=== PATIENT | female | born 1995 | race Caucasian/White ===

== ENCOUNTER 2024-06-01 22:28 | Emergency (ER) | payer OTHER, SELFPAY ==
[2024-06-01 22:42] VITALS: BP 161/99; PULSE 121; O2SAT 99
[2024-06-01 22:48] VITALS: BP 161/99; PULSE 115; RESP 19; TEMP 36.9; O2SAT 99; BMI 29.2
[2024-06-01 23:00] VITALS: PULSE 77; O2SAT 98
--- NOTE | 2024-06-01 23:21 | ED.GENADULT ---
HPI - General Adult General Chief complaint: Urogenital-Female Stated complaint: kidney infection, infected tooth Time Seen by Provider: 06/01/24 22:39 Source: patient Mode of arrival: Ambulatory History of Present Illness HPI narrative: Patient is a 28-year-old female. Was recently treated with clindamycin for a dental infection. She was seen at an outside facility for this she stated that that time she was also having a urinary tract infection although she stated that they seemed to be more focused on her dental where she was. She continues to have the dysuria and frequency and urgency. She has been taking Pyridium at home for symptoms without improvement. Some vomiting. Her dental pain is still present but is much improved. Related Data Previous Rx's Medication Instructions Recorded etonogestrel 0.12 mg-ethinyl 1 icr vaginal Q 1 MONTH #3 ea 07/19/16 estradiol 0.015 mg/24 hr vaginal ring (NuvaRing) cephalexin 500 mg capsule 500 mg PO BID 7 days #14 caps 06/02/24 phenazopyridine 100 mg tablet 100 mg PO TID PRN pain 6 doses #6 06/02/24 (Pyridium) tabs Allergies Allergy/AdvReac Type Severity Reaction Status Date / Time amoxicillin [AMOXICILLIN] Allergy Mild VOMITING Unverified 06/01/24 22:48 Review of Systems Review of Systems Narrative: See HPI Patient History Substance Use Type: does not use Exam Initial Vital Signs Initial Vital Signs: Vital Signs Pulse Rate 121 H 06/01/24 22:42 Blood Pressure 161/99 H 06/01/24 22:42 Pulse Oximetry 99 06/01/24 22:42 Const General: cooperative, comfortable and No ill appearing [facility] Head: normal to inspection Teeth and gingiva: fair dentition Resp Effort & Inspection: normal respiratory effort Auscultation: clear to auscultation bilaterally Cardio Rate: regular rate GI Inspection: normal to inspection Back/Spine/Pelvis Back: No CVA tenderness Neuro General: patient alert, patient awake and moves all extremities Course Orders Ordered: ED Orders 06/01/24 22:35 Urine Culture Stat Urine Microscopic Stat Discontinued Medications Cephalexin HCl (Cephalexin 250 Mg Capsule) 500 mg PO NOW ONE Stop: 06/02/24 00:03 Last Admin: 06/02/24 00:10 Dose: 500 mg Documented By: RODERICK Phenazopyridine HCl (Phenazopyridine 100 Mg Tablet) 100 mg PO NOW ONE Stop: 06/02/24 00:03 Last Admin: 06/02/24 00:10 Dose: 100 mg Documented By: RODERICK Vital Signs Vital signs: Vital Signs - 8 hr 06/01/24 22:42 06/01/24 22:42 06/01/24 22:48 Temperature 98.4 F Pulse Rate 121 H 115 H Respiratory Rate 19 Blood Pressure 161/99 H 161/99 H Pulse Oximetry 99 99 Oxygen Delivery Method Room Air 06/01/24 23:00 06/01/24 23:33 06/01/24 23:35 Temperature Pulse Rate 77 87 87 Respiratory Rate 18 Blood Pressure 99/56 L Pulse Oximetry 98 97 95 Oxygen Delivery Method Room Air 06/01/24 23:35 06/02/24 00:00 06/02/24 00:01 Temperature Pulse Rate 91 H 95 H Respiratory Rate Blood Pressure 99/56 L Pulse Oximetry 99 99 Oxygen Delivery Method 06/02/24 00:01 Temperature Pulse Rate Respiratory Rate Blood Pressure 142/63 H Pulse Oximetry Oxygen Delivery Method Medical Decision Making Lab Data Lab results reviewed: Yes I reviewed the patient's lab results. Labs: Lab Results 06/01/24 Range/Units 22:35 Urine RBC 30-100/hpf H (0-5/HPF) Urine WBC 5-10/hpf H (0-5/HPF) Ur Squamous Epith Cells 5-10 /hpf H (0-5/HPF) Urine Bacteria Many (>30) H (None) Ur Culture Indicated? Specimen cultured Vol Urine Centrifuged 10ml (spun) Point of Care Testing Test Results Negative Urine Dip Bedside Urine Glucose Negative Bedside Urine Bilirubin + 1 Bedside Urine Ketone +/- 5 Urine Specific [place] 1.030 Bedside Urine Occult Blood +++ Bedside Urine pH 6.0 Bedside Urine Protein + 30 Bedside Urine Urobilinogen +/- 1mg Bedside Urine Nitrite + Positive Bedside Urine Leukocytes ++ 125 Esterase Point of care testing: Point of Care Testing Test Results Negative Urine Dip Bedside Urine Glucose Negative Bedside Urine Bilirubin + 1 Bedside Urine Ketone +/- 5 Urine Specific [place] 1.030 Bedside Urine Occult Blood +++ Bedside Urine pH 6.0 Bedside Urine Protein + 30 Bedside Urine Urobilinogen +/- 1mg Bedside Urine Nitrite + Positive Bedside Urine Leukocytes ++ 125 Esterase MDM Narrative Medical decision making narrative: No definitive dental abscess seen on the exam. She does have a nitrite positive urine which is consistent with her presenting symptoms today. She was no CVA tenderness. Low suspicion for pyelonephritis. Will treat with antibiotics for her urinary tract infection. First dose given here in the ER and a prescription was sent to the pharmacy of her choice. She was given return precautions and follow-up instructions. She expressed understanding and agreement with plan. Discharge Plan Departure Patient Disposition: Home Clinical Impression: UTI (urinary tract infection) Instructions: DI for Urinary Tract Infection (UTI) Activity Restrictions/Additional Instructions: A urine culture was pending at the time of your discharge and we will contact you if we need to change antibiotics based on this. Take the antibiotics as directed. They were sent to [facility] per your request. You can take Tylenol and or ibuprofen for discomfort. Return to the emergency department for new or worsening symptoms. Prescriptions: New phenazopyridine [Pyridium] 100 mg tablet 100 mg PO TID PRN (Reason: pain) Qty: 6 0RF cephalexin 500 mg capsule 500 mg PO BID 7 Days Qty: 14 0RF No Action etonogestrel-ethinyl estradiol [NuvaRing] 1 EACH ring 1 icr Vaginal Q 1 MONTH Qty: 3 1RF Referrals: Alanis Peters DO [Primary Care Provider] - Stand Alone Forms: Patient Portal/API/Survey
[2024-06-01 23:33] VITALS: BP 99/56; PULSE 87; RESP 18; O2SAT 97
[2024-06-01 23:35] VITALS: BP 99/56; PULSE 87; O2SAT 95
[2024-06-01 23:50] LABS: RBC Urine 30-100/HPF (0-5/HPF); Urine Volume 10mL (spun)
[2024-06-01 23:51] LABS: Bacteria Urine Many (>30); Culture Indicated Urine Specimen Cultured; Squamous Epithelial Cell Urine 5-10 /HPF (0-5/HPF); WBC Urine 5-10/HPF (0-5/HPF)
[2024-06-02] VITALS: PULSE 91; O2SAT 99
[2024-06-02 00:01] VITALS: BP 142/63; PULSE 95; O2SAT 99
[2024-06-02] MEDS: PHENAZOPYRIDINE 100 MG TABLET PO (00:10)
[2024-06-02] MEDS: cephALEXin 250 MG CAPSULE 500 MG PO (00:10)
== END 2024-06-02 00:25 | disposition home or self-care (01) ==
PROVIDERS: Emergency Provider Emergency Medicine; PCP Family Medicine
DX: N39.0 Urinary tract infection, site not specified (principal)
CPT/HCPCS: 81003; 81015; 81025; 87077; 87086; 87186; 99283

== ENCOUNTER 2024-06-30 01:52 | Emergency (ER) | payer OTHER, MEDICAID, SELFPAY ==
[2024-06-30 02:08] VITALS: BP 113/69; PULSE 107; PULSE 124; RESP 18; TEMP 36.9; O2SAT 100; O2SAT 94; BMI 27.8
[2024-06-30 02:30] VITALS: BP 106/64; PULSE 92; O2SAT 93
[2024-06-30 02:43] LABS: Urine Volume 10mL (spun)
[2024-06-30 02:44] LABS: Bacteria Urine Many (>30); RBC Urine 30-100/HPF (0-5/HPF); Squamous Epithelial Cell Urine 10-30 /HPF (0-5/HPF); WBC Urine 1-5/HPF (0-5/HPF)
[2024-06-30 02:45] LABS: Culture Indicated Urine Specimen Cultured
--- NOTE | 2024-06-30 02:47 | ED_ITS ---
HPI - Female Genitourinary General Chief complaint: Urogenital-Female Stated complaint: kidney infection, tooth infection, was here t-3w Time Seen by Provider: 06/30/24 02:43 Source: patient, RN notes reviewed and old records reviewed Mode of arrival: Ambulatory Limitations: no limitations History of Present Illness HPI Narrative: [age] year female presents with complaint of UTI states she has had 2 bladder infections treated with oral antibiotics that failed in the past several months most recently was June 01, 2024. Patient states treated for UTI about 6 weeks ago while living in [place], has recently moved to the area was treated at the end of May and has had recurrent symptoms. She states never really had complete resolution of symptoms. Describes fevers, had some nausea and vomiting today, lower abdominal pain as well as bilateral flank pain but greater on right. Patient describes dysuria urgency and frequency. States she was not sexually active. No new discharge or vaginal bleeding. No issues with bowel movements. Patient states she completed her antibiotics. She has not daily prescription for ADHD. States no prior surgeries but has had cystoscopy for recurrent UTIs saw urogynecology several years ago she was having persistent and frequent UTIs that would never clear. Was told that she had little bit of change to her anatomy that makes her more likely to develop infections. She states she was on a low-dose oral antibiotic for 90 days for a period of time. She has had periods where she will be asymptomatic and then have extended periods where she is symptomatic. States she was in allergy to amoxicillin makes her vomit, also describes a dystonic reaction to Compazine. No regular tobacco, denies any recreational drugs or alcohol. Related Data Previous Rx's Medication Instructions Recorded etonogestrel 0.12 mg-ethinyl 1 icr vaginal Q 1 MONTH #3 ea 07/19/16 estradiol 0.015 mg/24 hr vaginal ring (NuvaRing) phenazopyridine 100 mg tablet 100 mg PO TID PRN pain 6 doses #6 06/02/24 (Pyridium) tabs ciprofloxacin HCl 500 mg tablet 500 mg PO BID #20 tabs 06/30/24 Allergies Allergy/AdvReac Type Severity Reaction Status Date / Time amoxicillin [AMOXICILLIN] Allergy Mild VOMITING Unverified 06/01/24 22:48 Review of Systems Review of Systems ROS Unobtainable: All systems reviewed & are unremarkable except as noted in HPI and below Patient History Substance Use Type: does not use Exam Narrative Exam Narrative: GENERAL: Alert and oriented x three, female in [id number] distress. HEENT: Head normocephalic, atraumatic, EOMI, pupils reactive, face symmetric, moist mucous membranes NECK: Supple, full range of motion CARDIOVASCULAR: Regular rate and rhythm without murmurs, rubs or gallops. RESPIRATORY: Breath sounds equal bilaterally, no wheezes rales or rhonchi. ABDOMEN: Soft, nontender. Normoactive bowel sounds all 4 quadrants. No guarding or rebound, rigidity, no mass : Mild right CVA tenderness, no left CVA tenderness EXTREMITIES: Normal range of motion, no clubbing or edema. Neurovascularly intact NEUROLOGICAL: Cranial nerves II through XII grossly intact. Moving all extremities SKIN: Warm, dry, no petechiae, no rashes or lesions. Initial Vital Signs Initial Vital Signs: Vital Signs Temperature 98.4 F 06/30/24 02:08 Pulse Rate 107 H 06/30/24 02:08 Respiratory Rate 18 06/30/24 02:08 Blood Pressure 113/69 06/30/24 02:08 Pulse Oximetry 100 06/30/24 02:08 Oxygen Delivery Method Room Air 06/30/24 02:08 Course Orders Ordered: ED Orders 06/30/24 02:11 Urine Culture Stat Urine Microscopic Stat 06/30/24 02:20 CBC Auto Diff [Complete Blood Count AUTO DIFF] Stat CMP [Comprehensive Metabolic Panel] Stat Lactate (Lactic Acid) Stat Procalcitonin Stat 06/30/24 03:07 US renal complete Stat 06/30/24 03:10 Blood Culture Stat Discontinued Medications Ciprofloxacin (Ciprofloxacin 250 Mg Tablet) 500 mg PO NOW ONE Stop: 06/30/24 03:07 Last Admin: 06/30/24 03:31 Dose: 500 mg Documented By: NORA Ketorolac Tromethamine (Ketorolac 30 Mg/Ml Vial) 15 mg IV NOW ONE Stop: 06/30/24 03:07 Last Admin: 06/30/24 03:31 Dose: 15 mg Documented By: NORA Ondansetron HCl (Ondansetron 4 Mg/2 Ml Inj) 4 mg IV NOW ONE Stop: 06/30/24 03:07 Last Admin: 06/30/24 03:32 Dose: 4 mg Documented By: NORA Ondansetron HCl (Ondansetron 4 Mg Odt Prepack) 1 bottle MISC DIRECTED ONE Stop: 06/30/24 05:35 Tramadol HCl (Tramadol 50 Mg Tablet) 50 mg PO NOW ONE Stop: 06/30/24 04:16 Last Admin: 06/30/24 05:00 Dose: 50 mg Documented By: NORA Tramadol HCl (Tramadol 50 Mg Prepack) 1 bottle MISC DIRECTED ONE Stop: 06/30/24 05:35 Vital Signs Vital signs: Vital Signs - 8 hr 06/30/24 02:08 06/30/24 02:08 06/30/24 02:08 Temperature 98.4 F Pulse Rate 107 H 124 H Respiratory Rate 18 Blood Pressure 113/69 113/69 Pulse Oximetry 100 94 Oxygen Delivery Method Room Air 06/30/24 02:30 06/30/24 02:30 06/30/24 03:00 Temperature Pulse Rate 92 H Respiratory Rate Blood Pressure 106/64 109/61 Pulse Oximetry 93 Oxygen Delivery Method 06/30/24 03:00 06/30/24 05:03 Temperature Pulse Rate 98 H 84 Respiratory Rate 20 16 Blood Pressure 107/64 Pulse Oximetry 100 97 Oxygen Delivery Method Room Air Room Air MDM - Female Genitourinary Lab Data 06/30/24 02:20 06/30/24 02:20 Labs: Lab Results 06/30/24 06/30/24 Range/Units 02:11 02:20 WBC 7.0 (4.5-11.0) X10^3/uL RBC 3.82 L (4.0-5.2) X10^6/uL Hgb 11.9 L (12.0-16.0) g/dL Hct 34.7 L (36-46) % MCV 90.8 (80-100) fL MCH 31.2 (26-34) PG MCHC 34.4 (30-36) % RDW 12.6 (11.6-14.8) % Plt Count 262 (150-400) X10^3/uL Neut % (Auto) 43.3 L (50-75) % Lymph % (Auto) 45.1 H (25-40) % [place] % (Auto) 8.8 (3-14) % Eos % (Auto) 1.7 L (2-4) % Baso % (Auto) 1.1 (0-2) % Neut # (Auto) 3000 (8993-9463) /uL Lymph # (Auto) 3200 (7325-5821) /uL [place] # (Auto) 600 (0-900) /uL Eos # (Auto) 100 (0-450) /uL Baso # (Auto) 100 (0-100) /uL Sodium 137 (137-145) mmol/L Potassium 3.8 (3.4-5.1) mmol/L Chloride 107 (98-107) mmol/L Carbon Dioxide 26 (22-32) mmol/L BUN 15 (7-17) mg/dL Creatinine 0.60 (0.52-1.04) mg/dL Estimated GFR > 60 (>60) mL/min BUN/Creatinine Ratio 25.0 H (6-22) Glucose 101 H (70-100) mg/dL Lactate 1.4 (0.7-2.1) mmol/L Calcium 8.8 (8.4-10.2) mg/dL Total Bilirubin 0.3 (0.2-1.3) mg/dL AST 25 (14-36) IU/L ALT 20 (<35) IU/L Alkaline Phosphatase 43 (38-126) U/L Total Protein 7.5 (6.3-8.2) g/dL Albumin 4.1 (3.5-5.0) g/dL Globulin 3.4 (1.7-4.1) g/dL Albumin/Globulin Ratio 1.2 (1.0-2.8) Procalcitonin < 0.030 (<0.5) ng/mL Urine RBC 30-100/hpf H (0-5/HPF) Urine WBC 1-5/hpf (0-5/HPF) Ur Squamous Epith Cells 10-30 /hpf H (0-5/HPF) Urine Bacteria Many (>30) H (None) Ur Culture Indicated? Specimen cultured Vol Urine Centrifuged 10ml (spun) Point of Care Testing Test Results Negative Urine Dip Bedside Urine Glucose Negative Bedside Urine Bilirubin - Negative Bedside Urine Ketone +/- 5 Urine Specific [place] 1.03 Bedside Urine Occult Blood +++ Bedside Urine pH 6 Bedside Urine Protein +/- 15 Bedside Urine Urobilinogen - Negative Bedside Urine Nitrite + Positive Bedside Urine Leukocytes + 70 Esterase Imaging Data renal us: Radiologist's Impression: Normal kidneys no hydro nondistended urinary bladder could not be evaluated. MDM Narrative Medical decision making narrative: 28-year-old female who has complaint of UTI symptoms which she states has been pretty persistent for the past 6 weeks was treated with oral antibiotics do not have access to her 1st urine culture but 2nd urine culture on 06/01 showed E coli pansensitive appears to has been treated appropriately with cephalexin but states she did not have improvement of symptoms. Patient does note that she has had issues with recurrent UTIs in the past she was actually seen urogynecology about 5 or 6 years ago for had cystoscopy they told her anatomy has a little bit different and probably made her more likely to get bacterial infections. She has done a 90 day course of a low-dose antibiotic in the past. She has not seen Urology recently Urine is negative. Point of care urine shows blood, positive nitrates, positive for leukocyte esterase. Patient was started on 100 RBCs, 1-5 WBCs 10-30 squamous, many bacteria was sent for culture. Labs show white count of 7 hemoglobin 11.9 platelets of 262 predominance of lymphocytes. Normal renal function, BUN and creatinine, glucose is 101 lactate 1.4 LFTs are negative, procalcitonin Renal ultrasound shows normal kidneys hydro, bladder not fully evaluated as it was decompressed. Reviewed patient's last visit she had positive urine culture for greater than 100,000 E coli that was pansensitive she was about month on 06/01/2024. Patient received Toradol, Zofran and ciprofloxacin. Patient is afebrile, slightly anemic but otherwise appropriate labs we will treat for potential pyelonephritis. We will also give referral for Urology as patient has had recurrent UTIs with a issues in the past. She has seen urogynecology but discussed she would have to go to a larger facility as we do not have that available. Patient is still little bit uncomfortable but feels improved. No persistent vomiting here in the department. She feels comfortable with following with Urology locally. Discussed return precautions. Discharge Plan Departure Patient Disposition: Home Clinical Impression: Pyelonephritis Instructions: DI for Kidney Infection Activity Restrictions/Additional Instructions: I think do think you would benefit from following up with Urology. Please call the number included below to set follow up. You do have a pending if it shows resistance the antibiotic you have been prescribed he will be contacted to change your antibiotic. Take oral antibiotics until completed. You can take Zofran 1 tablet every 6 hours as needed, can take tramadol 1-2 tablets every 6 hours as needed for pain. This medication can make you sleepy do not drive, perform hazardous activities or make any major decisions while taking it. This medication will make you constipated please take a stool softener once to twice daily until stools are soft and regular. Prescription sent to [facility] in [place]. Please return for persistent fevers, new or worsening abdominal back flank pain, persistent vomiting, inability urinate, black or bloody stools or other new or concerning changes. Prescriptions: New ciprofloxacin HCl 500 mg tablet 500 mg PO BID Qty: 20 0RF No Action etonogestrel-ethinyl estradiol [NuvaRing] 1 EACH ring 1 icr Vaginal Q 1 MONTH Qty: 3 1RF phenazopyridine [Pyridium] 100 mg tablet 100 mg PO TID PRN (Reason: pain) Qty: 6 0RF Referrals: Vicente Robins MD [Physician] - Stand Alone Forms: Patient Portal/API/Survey
[2024-06-30 03:00] VITALS: BP 109/61; PULSE 98; RESP 20; O2SAT 100
--- NOTE | 2024-06-30 03:07 | DI.US.S_ITS ---
PROCEDURE: US RENAL COMPLETE INDICATIONS: flank pain, vomiting, recurrent uti TECHNIQUE: Real-time scanning was performed of the kidneys and bladder, with image documentation. COMPARISON: None. FINDINGS: Kidneys: Kidneys are normal in size. Right kidney measures 9.8 cm long; left kidney measures 1.2 cm long. Right renal cortical thickness is 1.2 cm; left renal cortical thickness is 1.5 cm. Renal cortical echotexture is normal. No hydronephrosis or nephrolithiasis. No suspicious solid mass lesions. Bladder: Decompressed and not well evaluated. Miscellaneous: No free pelvic fluid. IMPRESSION: Normal appearance of the kidneys. Findings are concordant with preliminary interpretation provided by [facility]. Dictated by: Eduin Mcdowell M.D. on 06/30/2024 at 8:17 Approved by: Eduin Mcdowell M.D. on 06/30/2024 at 8:17
[2024-06-30 03:15] LABS: Add Manual Diff / Slide Review NO; Basophils Absolute Auto 100 /uL (0-100); Basophils Percent Auto 1.1 % (0-2); Eosinophils Absolute Auto 100 /uL (0-450); Eosinophils Percent Auto 1.7 % (2-4); Hematocrit 34.7 % (36-46); Hemoglobin 11.9 g/dL (12.0-16.0); Lymphocytes Absolute Auto 3200 /uL (1100-4500); Lymphocytes Percent Auto 45.1 % (25-40); Mean Corpuscular HGB Conc 34.4 % (30-36); Mean Corpuscular Hemoglobin 31.2 PG (26-34); Mean Corpuscular Volume 90.8 fL (80-100); Monocytes Absolute Auto 600 /uL (0-900); Monocytes Percent Auto 8.8 % (3-14); Neutrophils Absolute Auto 3000 /uL (1500-7000); Neutrophils Percent Auto 43.3 % (50-75); Platelet Count 262 X10^3/uL (150-400); Red Blood Cell Count 3.82 X10^6/uL (4.0-5.2); Red Cell Distribution Width 12.6 % (11.6-14.8)
[2024-06-30 03:20] LABS: Lactate (Lactic Acid) 1.4 mmol/L (0.7-2.1)
[2024-06-30 03:21] LABS: Alanine Aminotransferase 20 IU/L (<35); Albumin 4.1 g/dL (3.5-5.0); Albumin Globulin Ratio 1.2 (1.0-2.8); Alkaline Phosphatase 43 U/L (38-126); Aspartate Aminotransferase 25 IU/L (14-36); Bilirubin Total 0.3 mg/dL (0.2-1.3); Blood Urea Nitrogen 15 mg/dL (7-17); Calcium 8.8 mg/dL (8.4-10.2); Carbon Dioxide 26 mmol/L (22-32); Chloride 107 mmol/L (98-107); Estimated Glomerular Filt Rate > 60 mL/min (>60); Globulin 3.4 g/dL (1.7-4.1); Glucose 101 mg/dL (70-100); HEMOLYSIS < 15 (0-50); Potassium 3.8 mmol/L (3.4-5.1); Sodium 137 mmol/L (137-145); Total Protein 7.5 g/dL (6.3-8.2)
--- NOTE | 2024-06-30 03:30 | PC.NURSE ---
US at bedside
[2024-06-30] MEDS: KETOROLAC 30 MG/ML VIAL 15 MG IV (03:31)
[2024-06-30] MEDS: CIPROFLOXACIN 250 MG TABLET 500 MG PO (03:31)
[2024-06-30] MEDS: ONDANSETRON 4 MG/2 ML INJ IV (03:32)
[2024-06-30 03:37] LABS: Procalcitonin < 0.030 ng/mL (<0.5)
--- NOTE | 2024-06-30 04:00 | PC.NURSE ---
Pt resting quietly with eyes closed, resps even and not labored. No distress noted at this time.
[2024-06-30 04:58] VITALS: BP 107/64; PULSE 82; O2SAT 92
[2024-06-30 05:00] VITALS: PULSE 85; RESP 18; O2SAT 99
[2024-06-30] MEDS: TRAMADOL 50 MG TABLET PO (05:00)
[2024-06-30 05:03] VITALS: BP 107/64; PULSE 84; RESP 16; O2SAT 97
[2024-06-30] MEDS: ONDANSETRON 4 MG ODT PREPACK 1 BOTTLE MISC (05:39)
[2024-06-30] MEDS: TRAMADOL 50 MG PREPACK 1 BOTTLE MISC (05:39)
== END 2024-06-30 05:49 | disposition home or self-care (01) ==
PROVIDERS: Emergency Provider Emergency Medicine
DX: N12 Tubulo-interstitial nephritis, not specified as acute or chronic (principal); D64.9 Anemia, unspecified
CPT/HCPCS: 36415; 76770; 80053; 81003; 81015; 81025; 83605; 84145; 85025; 87040; 87077; 87086; 87186; 96374; 96375; 99284; J1885; J2405

== ENCOUNTER 2024-11-02 01:03 | Emergency (ER) | payer OTHER, SELFPAY ==
[2024-11-02 01:12] VITALS: BP 133/65; PULSE 133; RESP 20; TEMP 36.7; O2SAT 99
--- NOTE | 2024-11-02 01:25 | ED_ITS ---
HPI - Dental/Oral General Chief complaint: Dental/Oral Stated complaint: rt side of face swollen, vision is blurry Time Seen by Provider: 11/02/24 01:25 Source: patient Mode of arrival: Ambulatory History of Present Illness HPI Narrative: 29-year-old female with a history of mixed connective tissue disease not on any chronic medications for this, comes into the ED from home for evaluation of multiple complaints. She states that this disease has caused her issues with having dental infection/tooth loss. She states that she noticed that she has had issues with her teeth over the past few days started taking clindamycin however she states that she feels like it is not helping given the fact that she feels like she is now having blurry vision to her right eye, she states that she normally has baseline blurry vision to her right eye but she feels like it is ?10% worse she states that she has had history of sinus infections that cause worsening of the symptoms therefore decided come into the ED for further evaluation treatment. She denies any actual headache chest pain shortness breath fever chills nausea vomiting abdominal pain or any other GI/ symptoms time. On exam patient with NIH of 0, no focal deficits. Related Data Previous Rx's Medication Instructions Recorded etonogestrel 0.12 mg-ethinyl 1 icr vaginal Q 1 MONTH #3 ea 07/19/16 estradiol 0.015 mg/24 hr vaginal ring (NuvaRing) phenazopyridine 100 mg tablet 100 mg PO TID PRN pain 6 doses #6 06/02/24 (Pyridium) tabs ciprofloxacin HCl 500 mg tablet 500 mg PO BID #20 tabs 06/30/24 Allergies Allergy/AdvReac Type Severity Reaction Status Date / Time amoxicillin [AMOXICILLIN] Allergy Mild VOMITING Unverified 06/01/24 22:48 Review of Systems Review of Systems Narrative: General: Denies fever, chills, weight loss HEENT: Positive dental pain/swelling Denies headache, eye drainage, eye irritation, head trauma, sore throat, voice change Cardiovascular: Denies any chest pain, palpitations, tachycardia Respiratory: Denies any shortness of breath, cough, wheeze, stridor GI/: Denies any abdominal pain, nausea, vomiting, diarrhea, bright red blood per rectum, melanotic stools, urinary frequency, urinary retention, dysuria, hematuria MSK: Denies any joint pain, muscle pains, swelling Skin: Denies any rashes, lesions, discoloration Neuro: Positive right-sided blurry vision, Denies any headache, lightheadedness, dizziness, fainting, weakness Psych: Denies SI/HI Patient History Social History Smoking Status: Never smoker Smoking Status: Never smoker Exam Narrative Exam Narrative: General: Cooperative, well-developed, not in acute distress HEENT: Normocephalic, atraumatic, PERRLA, normal sclera, eyelids normal, multiple dental caries noted, patient is speaking full sentences protecting airway no appreciable periapical abscesses, eye pressures: Left eye 15 mm Hg, right eye 16 mm Hg Neck: Active full range of motion, atraumatic Chest: Normal to inspection, negative crepitus, no overlying erythema ecchymosis Respiratory: Normal respiratory effort, not in acute respiratory distress, clear to auscultation bilaterally negative cough, wheeze, tachypnea, rhonchi, rales Cardiology: Regular rate rhythm negative gallop, murmur, rubs GI/: No tenderness to palpation, soft, non rigid, normal to inspection, exam deferred MSK: Full active range of motion in all 4 extremities, atraumatic, no tenderness to palpation of any bony prominences Skin: No rashes or lesions noted Neuro: Alert awake oriented x3, moves all 4 extremities spontaneously, cranial nerves intact, able to answer all questions appropriately follows commands appropriately Psych: Cooperative, negative suicidal or homicidal ideations Initial Vital Signs Initial Vital Signs: Vital Signs Temperature 98.1 F 11/02/24 01:12 Pulse Rate 133 H 11/02/24 01:12 Respiratory Rate 20 11/02/24 01:12 Blood Pressure 133/65 11/02/24 01:12 Pulse Oximetry 99 11/02/24 01:12 Oxygen Delivery Method Room Air 11/02/24 01:12 Course Orders Ordered: ED Orders 11/02/24 01:20 Beta HCG, Quant [HCG Quantitative /Beta subunit] Stat CBC Auto Diff [Complete Blood Count AUTO DIFF] Stat CMP [Comprehensive Metabolic Panel] Stat MAG [Magnesium] Stat 11/02/24 01:35 CT angio head and neck Stat CT head/brain wo con Stat Vital Signs Vital signs: Vital Signs - 8 hr 11/02/24 01:12 Temperature 98.1 F Pulse Rate 133 H Respiratory Rate 20 Blood Pressure 133/65 Pulse Oximetry 99 Oxygen Delivery Method Room Air MDM - Dental/Oral Lab Data 11/02/24 01:20 11/02/24 01:20 Labs: Lab Results 11/02/24 Range/Units 01:20 WBC 7.9 (4.5-11.0) X10^3/uL RBC 4.01 (4.0-5.2) X10^6/uL Hgb 12.5 (12.0-16.0) g/dL Hct 35.7 L (36-46) % MCV 89.0 (80-100) fL MCH 31.2 (26-34) PG MCHC 35.1 (30-36) % RDW 12.3 (11.6-14.8) % Plt Count 344 (150-400) X10^3/uL Neut % (Auto) 56.5 (50-75) % Lymph % (Auto) 37.2 (25-40) % Ware % (Auto) 4.6 (3-14) % Eos % (Auto) 0.8 L (2-4) % Baso % (Auto) 0.9 (0-2) % Neut # (Auto) 4500 (6269-3188) /uL Lymph # (Auto) 2900 (8277-4638) /uL Ware # (Auto) 400 (0-900) /uL Eos # (Auto) 100 (0-450) /uL Baso # (Auto) 100 (0-100) /uL Sodium 139 (137-145) mmol/L Potassium 3.7 (3.4-5.1) mmol/L Chloride 102 (98-107) mmol/L Carbon Dioxide 26 (22-32) mmol/L BUN 13 (7-17) mg/dL Creatinine 0.73 (0.52-1.04) mg/dL Estimated GFR > 60 (>60) mL/min BUN/Creatinine Ratio 17.8 (6-22) Glucose 119 H (70-100) mg/dL Calcium 9.5 (8.4-10.2) mg/dL Magnesium 2.0 (1.6-2.3) mg/dL Total Bilirubin 0.5 (0.2-1.3) mg/dL AST 26 (14-36) IU/L ALT 19 (<35) IU/L Alkaline Phosphatase 63 (38-126) U/L Total Protein 8.7 H (6.3-8.2) g/dL Albumin 4.6 (3.5-5.0) g/dL Globulin 4.1 (1.7-4.1) g/dL Albumin/Globulin Ratio 1.1 (1.0-2.8) HCG, Quant < 2.39 mIU/mL Imaging Data CT scan - head: Radiologist's Impression: Preliminary read showing no acute intracranial abnormality, paranasal sinuses and mastoid air cells normally aerated CTA - brain/neck: Radiologist's Impression: Preliminary read showing nasopharynx, oropharynx and hypopharynx normal, no cervical mass fluid collection no aerodigestive tract mass the parotid submandibular and thyroid glands are normal no lymphadenopathy, no at evidence of stenosis or occlusion of the vertebral arteries MDM Narrative Medical decision making narrative: 29-year-old female with a history of mixed connective tissue disease comes into the ED from home for evaluation of possible dental infection, states that she has been taking clindamycin for this over the past 4 days, she states that she feels like this is not helping, she also states that she feels like she has worsening of her baseline right eye blurry vision, she states that she feels like it is ?10% worse she states that the blurry vision is typically due to her astigmatism, is not wearing her corrective lenses today. She states that she has not having any headache or other new visual disorder. On exam patient with multiple dental caries but no periapical abscesses noted. Patient with NIH of 0, extraocular eye motions are intact. Patient with normal eye pressures bilaterally Patient had lab work imaging performed here in the emergency department without any acute findings. There is no appreciable swelling to the right side of her face, patient was instructed to follow up with her primary care doctor as well as dentist, patient was given strict return precautions she verbalized understanding of this and agrees to being discharged home with outpatient follow up Discharge Plan Departure Patient Disposition: Home Clinical Impression: Dental caries Activity Restrictions/Additional Instructions: Please follow up with your primary care doctor, ophthalmology as well as your dentist Please read the discharge instructions sheet carefully and bring all papers to all doctor follow-up visits, as it may contain information that your doctor may want to see. Disease processes change and evolve, if your symptoms worsen or if you develop any new symptoms that are concerning to you please return for evaluation. Your evaluation today does not show any evidence of any life- threatening/serious illnesses requiring admission to the hospital or surgery. Please follow-up with your doctor for re-evaluation in approximately 1 day. Seek immediate medical attention for any worrisome symptoms. *If you do not have a primary care provider please contact the [facility] Resource line at [phone]. They will ask some questions about your medical history and help get you set up with a doctor in the community. Prescriptions: No Action etonogestrel-ethinyl estradiol [NuvaRing] 1 EACH ring 1 icr Vaginal Q 1 MONTH Qty: 3 1RF ciprofloxacin HCl 500 mg tablet 500 mg PO BID Qty: 20 0RF phenazopyridine [Pyridium] 100 mg tablet 100 mg PO TID PRN (Reason: pain) Qty: 6 0RF Referrals: Jonel Freitas MD [Primary Care Provider] - Stand Alone Forms: Patient Portal/API/Survey
--- NOTE | 2024-11-02 01:35 | DI.CT.S_ITS ---
PROCEDURE: CT HEAD/BRAIN WO CON INDICATIONS: right eye blurry vision TECHNIQUE: Noncontrast 4.5 mm thick angled axial sections acquired from the foramen magnum to the vertex, with coronal and sagittal reformats. For radiation dose reduction, the following was used: automated exposure control, adjustment of mA and/or kV according to patient size. COMPARISON: None. FINDINGS: Image quality: Diagnostic. CSF spaces: Basal cisterns are patent. No extra-axial fluid collections. Ventricles are normal in size and shape. Brain: No midline shift. No intracranial masses or hemorrhage. Patel-white matter interface is normal. Skull and face: Calvarium and visualized facial bones are intact, without suspicious lesions. Sinuses: Left maxillary sinus mucosal thickening. Remainder of the paranasal sinuses appear clear. Mastoid air cells are well-aerated. IMPRESSION: No acute intracranial pathology. Left maxillary sinus disease. No significant discrepancy with the date night sitter radiology preliminary report. Dictated by: Gopi Wood M.D. on 11/02/2024 at 7:08 Approved by: Gopi Wood M.D. on 11/02/2024 at 7:08
--- NOTE | 2024-11-02 01:35 | DI.CT.S_ITS ---
PROCEDURE: CT ANGIO HEAD AND NECK INDICATIONS: right eye blurry vision TECHNIQUE: After the administration of intravenous contrast, 1 mm thick sections acquired from the aortic arch through the [place]. 3-dimensional dduiedh-qcfnfnqts-rczsqivdlt (MIP) and/or volume rendering reformats were acquired of the central intracranial vasculature and neck separately. For radiation dose reduction, the following was used: automated exposure control, adjustment of mA and/or kV according to patient size. COMPARISON: None. FINDINGS: Image quality: Diagnostic. BRAIN: CSF spaces: Ventricles are normal in size and shape. Basal cisterns are patent. No extra-axial fluid collections. Brain: No significant abnormality of the brain can be seen. Skull and face: Calvarium and facial bones appear intact, without suspicious lesions. Orbits appear normal. Sinuses: Left maxillary sinus mucosal thickening. Remainder of the paranasal sinuses appear clear. Mastoid air cells are well-aerated. HEAD CT ANGIOGRAPHY: Anterior circulation: Intracranial internal carotid arteries are normal in size and flow. The flow within the paired anterior cerebral arteries is normal and symmetric. The flow within the middle cerebral arteries is normal and symmetric. The anterior communicating artery is seen. No aneurysms are seen. Posterior circulation: Visualized portions of the vertebral arteries demonstrate normal caliber, and join to form a normal appearing basilar artery. Flow within the posterior cerebral arteries is normal and symmetric. No aneurysms are seen. NECK CT ANGIOGRAPHY: Carotid system: The great vessels demonstrate a conventional anatomy as they arise from the aortic arch. The origins of the common carotid arteries appear patent. The common carotid arteries demonstrate normal caliber and courses. The bifurcation regions are both widely patent. The internal carotid arteries demonstrate normal calibers and courses. Posterior circulation: The origins of the vertebral arteries both appear widely patent. The more superior extracranial portions of both vertebral arteries also demonstrate normal courses and calibers. They join to form a normal appearing basilar artery. Soft tissues: Visualized neck soft tissues demonstrate no suspicious abnormalities. Bones: No suspicious bony lesions. Visualized cervical spine appears normally aligned. IMPRESSION: No significant intracranial arterial abnormality is seen. No significant abnormality is seen within the arteries of the neck. Left maxillary sinus disease. Any quantitative measurements of stenosis were performed using NASCET criteria. No significant discrepancy with the analog ic design engineer radiology preliminary report. Dictated by: Gopi Wood M.D. on 11/02/2024 at 7:09 Approved by: Gopi Wood M.D. on 11/02/2024 at 7:12
[2024-11-02 01:43] LABS: Add Manual Diff / Slide Review NO; Basophils Absolute Auto 100 /uL (0-100); Basophils Percent Auto 0.9 % (0-2); Eosinophils Absolute Auto 100 /uL (0-450); Eosinophils Percent Auto 0.8 % (2-4); Hematocrit 35.7 % (36-46); Hemoglobin 12.5 g/dL (12.0-16.0); Lymphocytes Absolute Auto 2900 /uL (1100-4500); Lymphocytes Percent Auto 37.2 % (25-40); Mean Corpuscular HGB Conc 35.1 % (30-36); Mean Corpuscular Hemoglobin 31.2 PG (26-34); Monocytes Absolute Auto 400 /uL (0-900); Monocytes Percent Auto 4.6 % (3-14); Neutrophils Absolute Auto 4500 /uL (1500-7000); Neutrophils Percent Auto 56.5 % (50-75); Platelet Count 344 X10^3/uL (150-400); Red Blood Cell Count 4.01 X10^6/uL (4.0-5.2); Red Cell Distribution Width 12.3 % (11.6-14.8); White Blood Cell Count 7.9 X10^3/uL (4.5-11.0)
[2024-11-02 01:49] LABS: Alanine Aminotransferase 19 IU/L (<35); Albumin 4.6 g/dL (3.5-5.0); Albumin Globulin Ratio 1.1 (1.0-2.8); Alkaline Phosphatase 63 U/L (38-126); Aspartate Aminotransferase 26 IU/L (14-36); BUN Creatinine Ratio 17.8 (6-22); Bilirubin Total 0.5 mg/dL (0.2-1.3); Blood Urea Nitrogen 13 mg/dL (7-17); Calcium 9.5 mg/dL (8.4-10.2); Carbon Dioxide 26 mmol/L (22-32); Chloride 102 mmol/L (98-107); Estimated Glomerular Filt Rate > 60 mL/min (>60); Globulin 4.1 g/dL (1.7-4.1); Glucose 119 mg/dL (70-100); HEMOLYSIS < 15 (0-50); Potassium 3.7 mmol/L (3.4-5.1); Sodium 139 mmol/L (137-145); Total Protein 8.7 g/dL (6.3-8.2)
[2024-11-02 02:06] LABS: HCG Quantitative /Beta subunit < 2.39 mIU/mL
[2024-11-02 02:36] VITALS: BP 101/57; PULSE 84; O2SAT 100
[2024-11-02] MEDS: PROPARACAINE 0.5% OPHTH SOL 1 DROPS EYE-BOTH (02:43)
[2024-11-02 03:00] VITALS: BP 104/69; PULSE 85; RESP 20; O2SAT 100
== END 2024-11-02 03:13 | disposition home or self-care (01) ==
PROVIDERS: Emergency Provider Student in an Organized Health Care Education/Training Program; PCP Family Medicine
DX: K02.9 Dental caries, unspecified (principal); H53.8 Other visual disturbances; Z87.39 Personal history of other diseases of the musculoskeletal system and connective tissue
CPT/HCPCS: 36415; 70450; 70496; 70498; 80053; 83735; 84702; 85025; 99283; 99284; Q9967

== ENCOUNTER → 2025-03-16 09:57 | Outpatient (CLI) | payer OTHER, SELFPAY ==
[2025-03-16 12:08] LABS: Prealbumin 19.0 mg/dL (17.6-36.0)
[2025-03-16 12:54] LABS: Cortisol AM (Before 10AM) 3.10 ug/dL (4.46-22.7)
[2025-03-17 19:11] LABS: SS A Ro Sjogrens Antibody < 0.2 AI (0.0-0.9); SS B La Sjogrens Antibody < 0.2 AI (0.0-0.9)
== END ==
PROVIDERS: Psychiatry & Neurology Neurology; Referring Provider Internal Medicine; Visit Provider Internal Medicine
DX: R42 Dizziness and giddiness (principal); R55 Syncope and collapse
CPT/HCPCS: 36415; 82024; 82088; 82533; 84134; 84244; 86038; 86235